=== PATIENT | male | born 1995 | race Caucasian/White ===

== ENCOUNTER 2018-08-23 22:57 | Inpatient (IN) | payer MEDICAID ==
[2018-08-23 23:23] LABS: ADD MAN DIFF? NO
[2018-08-23 23:25] LABS: BASOPHILS % 0.1 % (0.0-2.0); HEMATOCRIT 41.8 % (42.0-52.0); HEMOGLOBIN 14.9 g/dl (14.0-18.0); LYMPHOCYTES % 4.8 % (15.0-51.0); MEAN CORPUSCULAR HEMOGLOBIN 32.4 pg (29.0-33.0); MEAN CORPUSCULAR HGB CONC 35.6 g/dl (32.0-37.0); MEAN CORPUSCULAR VOLUME 90.9 fl (82.0-101.0); MEAN PLATELET VOLUME 8.3 fl (7.4-10.4); MONOCYTE # 1.4 10^3/ul (0.3-0.9); MONOCYTES % 6.3 % (0.0-11.0); NEUTROPHIL # 18.9 10^3/ul (1.6-7.5); NEUTROPHILS % 88.2 % (39.0-77.0); PLATELET COUNT 224 10^3/UL (140-415); RED CELL DISTRIBUTION WIDTH 13.4 % (11.5-14.5)
[2018-08-23 23:25] LABS: WHITE BLOOD COUNT 21.5 10^3/ul (4.8-10.8)
[2018-08-23] MEDS: ACETAMINOPHEN 325 MG TAB PO (23:28)
[2018-08-23] MEDS: ONDANSETRON 4 MG INJ IV (23:28)
[2018-08-23] MEDS: SODIUM CHLORIDE 0.9% 1L BAG IV* (23:28)
[2018-08-23] MEDS: morphine 4 MG/ML VIAL IV (23:28)
[2018-08-23 23:43] LABS: ALANINE AMINOTRANSFERASE 7 IU/L (13-69); ALBUMIN 4.6 g/dl (3.3-4.9); ALBUMIN/GLOBULIN RATIO 1.35; ALKALINE PHOSPHATASE 92 IU/L (42-121); ANION GAP 17 (5-13); ASPARTATE AMINO TRANSFERASE 21 IU/L (15-46); BILIRUBIN,INDIRECT 2.2 mg/dl (0-1.1); BILIRUBIN,TOTAL 2.2 mg/dl (0.2-1.3); BLOOD UREA NITROGEN 26 mg/dl (7-20); CALCIUM 10.2 mg/dl (8.4-10.2); CARBON DIOXIDE 29 mmol/L (21-31); CHLORIDE 90 mmol/L (97-110); CREATININE 1.15 mg/dl (0.61-1.24); Estimated GFR > 60 mL/min (>60); GLUCOSE 104 mg/dl (70-220); POTASSIUM 4.2 mmol/L (3.5-5.1); SODIUM 136 mmol/L (135-144)
[2018-08-23 23:45] LABS: INR 1.13; PROTIME 14.6 Sec (11.9-14.9); PT RATIO 1.1
[2018-08-23 23:46] LABS: PARTIAL THROMBOPLASTIN TIME 40.4 Sec (23.0-35.0)
[2018-08-23 23:54] LABS: TROPONIN-I < 0.012 ng/ml (0.000-0.120)
[2018-08-24] MEDS ORDERED: ACETAMINOPHEN 325 MG TAB PO ×2 (00:30→03:00)
[2018-08-24] MEDS: PIPER-TAZO 3.375 GM IV (PMX) 100 ML IVPB ×4 (00:40→17:15)
[2018-08-24] MEDS: VANCOMYCIN 1 GM (PMX) 250 ML IVPB (00:57)
[2018-08-24] MEDS: ONDANSETRON 4 MG INJ IV ×3 (02:29→18:13)
[2018-08-24] MEDS: morphine 4 MG/ML VIAL IV (02:30)
[2018-08-24] MEDS ORDERED: ALBUTEROL/IPRATROPIUM (NEB) 3 ML AMP HHN (03:00)
[2018-08-24] MEDS ORDERED: NACL 0.9% 3 ML SYG IV (03:00)
[2018-08-24] MEDS: SOD CHLORIDE 0.9% 1,000 ML IV ×3 (04:41→22:22)
[2018-08-24] MEDS: LORAZEPAM 2 MG INJ IV ×3 (05:00→18:13)
[2018-08-24 05:19] LABS: ADD MAN DIFF? NO
[2018-08-24 05:28] LABS: BASOPHILS % 0.2 % (0.0-2.0); LYMPHOCYTES # 1.1 10^3/ul (0.8-2.9); LYMPHOCYTES % 7.7 % (15.0-51.0); MEAN CORPUSCULAR HEMOGLOBIN 32.8 pg (29.0-33.0); MEAN CORPUSCULAR HGB CONC 35.1 g/dl (32.0-37.0); MEAN CORPUSCULAR VOLUME 93.6 fl (82.0-101.0); MEAN PLATELET VOLUME 8.6 fl (7.4-10.4); MONOCYTES % 6.6 % (0.0-11.0); NEUTROPHIL # 12.4 10^3/ul (1.6-7.5); NEUTROPHILS % 84.9 % (39.0-77.0); RED CELL DISTRIBUTION WIDTH 13.6 % (11.5-14.5)
[2018-08-24 05:51] LABS: LACTIC ACID 0.8 mmol/L (0.5-2.0)
[2018-08-24 05:53] LABS: WHITE BLOOD COUNT 14.6 10^3/ul (4.8-10.8)
[2018-08-24 05:53] LABS: HEMATOCRIT 32.2 % (42.0-52.0); HEMOGLOBIN 11.3 g/dl (14.0-18.0); PLATELET COUNT 154 10^3/UL (140-415); RED BLOOD COUNT 3.44 10^6/ul (4.70-6.10)
[2018-08-24 06:02] LABS: ALANINE AMINOTRANSFERASE 17 IU/L (13-69); ALBUMIN 2.8 g/dl (3.3-4.9); ALBUMIN/GLOBULIN RATIO 1.07; ALKALINE PHOSPHATASE 54 IU/L (42-121); ANION GAP 9 (5-13); ASPARTATE AMINO TRANSFERASE 20 IU/L (15-46); BILIRUBIN,INDIRECT 1.1 mg/dl (0-1.1); BILIRUBIN,TOTAL 1.1 mg/dl (0.2-1.3); BLOOD UREA NITROGEN 20 mg/dl (7-20); CALCIUM 8.3 mg/dl (8.4-10.2); CARBON DIOXIDE 26 mmol/L (21-31); CHLORIDE 100 mmol/L (97-110); CREATININE 0.85 mg/dl (0.61-1.24); Estimated GFR > 60 mL/min (>60); GLUCOSE 126 mg/dl (70-220); POTASSIUM 3.7 mmol/L (3.5-5.1); SODIUM 135 mmol/L (135-144); TOTAL PROTEIN 5.4 g/dl (6.1-8.1)
[2018-08-24 08:02] LABS: ADD UMIC YES; UR ASCORBIC ACID NEGATIVE (NEGATIVE); UR BILIRUBIN (Dip) NEGATIVE (NEGATIVE); UR BLOOD (Dip) NEGATIVE (NEGATIVE); UR CLARITY CLEAR (CLEAR); UR COLOR YELLOW (YELLOW); UR GLUCOSE (Dip) NEGATIVE (NEGATIVE); UR KETONES (Dip) 2+ mg/dL (NEGATIVE); UR LEUKOCYTE ESTERASE (Dip) NEGATIVE Leu/ul (NEGATIVE); UR NITRITE (Dip) NEGATIVE (NEGATIVE); UR RBC 5 /HPF (0-5); UR SPECIFIC GRAVITY (Dip) 1.018 (1.003-1.030); UR TOTAL PROTEIN (Dip) 1+ mg/dl (NEGATIVE); UR UROBILINOGEN (Dip) NEGATIVE (NEGATIVE); UR WBC 1 /HPF (0-5)
[2018-08-24] MEDS ORDERED: VANCOMYCIN IV PER PHARMACY XX (09:00)
[2018-08-24] MEDS: HEPARIN 5,000 UNIT/1 ML VIAL SC ×2 (09:00→21:00)
[2018-08-24] MEDS: VANCOMYCIN 750 MG (PMX) 250 ML IVPB ×2 (09:53→18:12)
[2018-08-24] MEDS ORDERED: VANCOMYCIN 500 MG (PMX) 100 ML IVPB (12:00)
[2018-08-24] MEDS ORDERED: morphine 4 MG/ML VIAL IV (12:00)
[2018-08-24] MEDS: KETOROLAC 30 MG INJ IV ×2 (12:00→17:15)
[2018-08-24] MEDS: LORAZEPAM 0.5 MG TAB PO ×2 (12:00→22:21)
[2018-08-24] MEDS: VANCOMYCIN HCL 250 MG/5ML POSYG PO ×2 (15:19→18:53)
[2018-08-24] MEDS: FAMOTIDINE 20 MG TAB PO (15:19)
[2018-08-25] MEDS: VANCOMYCIN HCL 250 MG/5ML POSYG PO ×4 (00:15→18:25)
[2018-08-25] MEDS: PIPER-TAZO 3.375 GM IV (PMX) 100 ML IVPB ×4 (00:15→18:19)
[2018-08-25] MEDS: KETOROLAC 30 MG INJ IV ×4 (00:15→18:20)
[2018-08-25] MEDS: VANCOMYCIN 750 MG (PMX) 250 ML IVPB ×3 (02:40→19:02)
[2018-08-25 03:24] LABS: VANCOMYCIN,TROUGH 14.2 ug/ml (10.0-20.0)
[2018-08-25] MEDS: SOD CHLORIDE 0.9% 1,000 ML IV ×3 (04:48→20:37)
[2018-08-25 05:44] LABS: ADD MAN DIFF? NO
[2018-08-25 05:58] LABS: BASOPHILS % 0.1 % (0.0-2.0); EOSINOPHILS # 0.1 10^3/ul (0.0-0.5); EOSINOPHILS % 0.8 % (0.0-7.0); HEMATOCRIT 28.8 % (42.0-52.0); HEMOGLOBIN 9.6 g/dl (14.0-18.0); LYMPHOCYTES # 1.1 10^3/ul (0.8-2.9); LYMPHOCYTES % 11.6 % (15.0-51.0); MEAN CORPUSCULAR HEMOGLOBIN 31.8 pg (29.0-33.0); MEAN CORPUSCULAR HGB CONC 33.3 g/dl (32.0-37.0); MEAN CORPUSCULAR VOLUME 95.4 fl (82.0-101.0); MONOCYTE # 0.6 10^3/ul (0.3-0.9); MONOCYTES % 5.9 % (0.0-11.0); NEUTROPHILS % 81.2 % (39.0-77.0); PLATELET COUNT 117 10^3/UL (140-415); RED BLOOD COUNT 3.02 10^6/ul (4.70-6.10); RED CELL DISTRIBUTION WIDTH 13.5 % (11.5-14.5)
[2018-08-25 05:58] LABS: WHITE BLOOD COUNT 9.8 10^3/ul (4.8-10.8)
[2018-08-25 06:16] LABS: INR 1.28; PROTIME 16.1 Sec (11.9-14.9); PT RATIO 1.3
[2018-08-25] MEDS: ONDANSETRON 4 MG INJ IV ×3 (06:20→18:20)
[2018-08-25 06:23] LABS: LACTIC ACID 1.4 mmol/L (0.5-2.0)
[2018-08-25 06:34] LABS: ALANINE AMINOTRANSFERASE 14 IU/L (13-69); ALBUMIN 2.4 g/dl (3.3-4.9); ALKALINE PHOSPHATASE 61 IU/L (42-121); ANION GAP 5 (5-13); ASPARTATE AMINO TRANSFERASE 14 IU/L (15-46); BILIRUBIN,INDIRECT 0.5 mg/dl (0-1.1); BILIRUBIN,TOTAL 0.5 mg/dl (0.2-1.3); BLOOD UREA NITROGEN 12 mg/dl (7-20); CARBON DIOXIDE 26 mmol/L (21-31); CHLORIDE 106 mmol/L (97-110); CREATININE 0.97 mg/dl (0.61-1.24); Estimated GFR > 60 mL/min (>60); GLUCOSE 75 mg/dl (70-220); MAGNESIUM 1.9 mg/dl (1.7-2.5); POTASSIUM 3.3 mmol/L (3.5-5.1); SODIUM 137 mmol/L (135-144); TOTAL PROTEIN 4.8 g/dl (6.1-8.1)
[2018-08-25] MEDS: FAMOTIDINE 20 MG TAB PO (08:25)
[2018-08-25] MEDS: LORAZEPAM 0.5 MG TAB PO ×2 (08:25→20:38)
[2018-08-25] MEDS: HEPARIN 5,000 UNIT/1 ML VIAL SC ×2 (08:36→20:39)
[2018-08-25] MEDS ORDERED: POTASSIUM CHLORIDE 20 MEQ POWDER FOR ORAL SOLN PO (12:00)
[2018-08-25] MEDS: LORAZEPAM 2 MG INJ IV (12:49)
[2018-08-25] MEDS: POTASSIUM CHLORIDE (SR) 20 MEQ TAB PO (12:49)
[2018-08-25 14:29] LABS: HEMOGLOBIN A1C 4.9 % (0-5.9)
[2018-08-25 15:45] LABS: THYROID STIMULATING HORMONE 0.303 MIU/L (0.465-4.680)
[2018-08-26] MEDS: PIPER-TAZO 3.375 GM IV (PMX) 100 ML IVPB ×2 (00:19→05:28)
[2018-08-26] MEDS: VANCOMYCIN HCL 250 MG/5ML POSYG PO ×2 (00:20→05:28)
[2018-08-26] MEDS: KETOROLAC 30 MG INJ IV ×2 (00:20→05:28)
[2018-08-26] MEDS: VANCOMYCIN 750 MG (PMX) 250 ML IVPB ×2 (02:32→09:37)
[2018-08-26] MEDS: SOD CHLORIDE 0.9% 1,000 ML IV (05:29)
[2018-08-26 05:45] LABS: ADD MAN DIFF? NO
[2018-08-26 05:49] LABS: WHITE BLOOD COUNT 9.5 10^3/ul (4.8-10.8)
[2018-08-26 05:49] LABS: BASOPHILS % 0.3 % (0.0-2.0); EOSINOPHILS # 0.2 10^3/ul (0.0-0.5); EOSINOPHILS % 1.9 % (0.0-7.0); HEMATOCRIT 31.7 % (42.0-52.0); HEMOGLOBIN 10.6 g/dl (14.0-18.0); LYMPHOCYTES # 1.7 10^3/ul (0.8-2.9); LYMPHOCYTES % 17.4 % (15.0-51.0); MEAN CORPUSCULAR HGB CONC 33.4 g/dl (32.0-37.0); MEAN CORPUSCULAR VOLUME 95.8 fl (82.0-101.0); MEAN PLATELET VOLUME 9.2 fl (7.4-10.4); MONOCYTE # 0.7 10^3/ul (0.3-0.9); MONOCYTES % 7.1 % (0.0-11.0); NEUTROPHIL # 6.9 10^3/ul (1.6-7.5); NEUTROPHILS % 72.8 % (39.0-77.0); PLATELET COUNT 138 10^3/UL (140-415); RED BLOOD COUNT 3.31 10^6/ul (4.70-6.10); RED CELL DISTRIBUTION WIDTH 13.4 % (11.5-14.5)
[2018-08-26 06:19] LABS: PHOSPHORUS 2.2 mg/dl (2.5-4.9)
[2018-08-26 06:19] LABS: MAGNESIUM 1.9 mg/dl (1.7-2.5)
[2018-08-26 06:25] LABS: ANION GAP 4 (5-13); BLOOD UREA NITROGEN 5 mg/dl (7-20); CALCIUM 8.3 mg/dl (8.4-10.2); CARBON DIOXIDE 27 mmol/L (21-31); CHLORIDE 109 mmol/L (97-110); CREATININE 1.25 mg/dl (0.61-1.24); Estimated GFR > 60 mL/min (>60); GLUCOSE 79 mg/dl (70-220); POTASSIUM 3.4 mmol/L (3.5-5.1); SODIUM 140 mmol/L (135-144)
[2018-08-26] MEDS: HEPARIN 5,000 UNIT/1 ML VIAL SC (09:00)
[2018-08-26] MEDS: POTASSIUM CHLORIDE (SR) 20 MEQ TAB PO (09:35)
[2018-08-26] MEDS: LORAZEPAM 0.5 MG TAB PO (09:36)
[2018-08-26] MEDS: FAMOTIDINE 20 MG TAB PO (09:37)
[2018-08-26] MEDS ORDERED: POTASSIUM CHLORIDE (SR) 20 MEQ TAB PO (10:30)
== END 2018-08-26 12:10 | disposition home or self-care (01) | DRG 872 ==
LOC: E/R 22:57 → 2NE 08-24 00:21
DX: A41.9 Sepsis, unspecified organism (principal); K50.90 Crohn's disease, unspecified, without complications; A04.72 Enterocolitis due to Clostridium difficile, not specified as recurrent; D64.9 Anemia, unspecified
CPT/HCPCS: 36415; 71045; 74018; 74176; 80048; 80053; 80202; 81001; 83036; 83605; 83735; 84100; 84443; 84484; 85025; 85610; 85730; 87040-91; 87045; 87075; 87081; 87086; 93005; 96374; 96375; 99285-25